=== PATIENT | female | born 1975 ===

== ENCOUNTER 2021-06-12 20:37 | Emergency (ER) | payer OTHER ==
[~2021-06-12] VITALS: Ht 167.6 cm; Wt 100.2 kg
[2021-06-12] MEDS ORDERED: CYCLOBENZAPRINE10 MG PO (22:57)
[2021-06-12] MEDS ORDERED: SKELAGESIC PO (22:57)
== END 2021-06-12 23:03 ==
LOC: ER 20:37
DX: M25.552 Pain in left hip (principal)

== ENCOUNTER 2023-01-22 20:42 | Emergency (ER) | payer OTHER ==
[~2023-01-22] VITALS: Ht 167.6 cm; Wt 97.5 kg
[~2023-01-22 20:42] MED LIST: CYCLOBENZAPRINE10 MG PO; SKELAGESIC PO
== END 2023-01-22 22:16 | disposition home or self-care (01) ==
LOC: ER 20:42
DX: G44.209 Tension-type headache, unspecified, not intractable (principal); Z88.8 Allergy status to other drugs, medicaments and biological substances; K29.60 Other gastritis without bleeding